=== PATIENT | male | born 1965 | race Caucasian/White ===

== ENCOUNTER 2020-07-08 14:13 | Inpatient (IN) | payer BC, OTHER ==
[~2020-07-08 14:13] MED LIST: AMBIEN 5 MG TABL5 M1; AVAPRO 150 MG150 M1; BUSPIRONE HCL15 MG PO; EFFEXOR XR150 MG PO; LEXAPRO 10 MG T10 M1; LOVASTATIN 20 M20 MG; PERCOCET 5-3251 EACH PO; XANAX 0.5 MG0.5 MG PO; ZETIA10 MG PO; ZOFRAN ODT4 MG PO; ZOLOFT50 MG; melatonin
--- NOTE | 2020-07-09 07:23 | NUR ---
Transferred to [facility] unit on 07/09/20 @ 0400 from [facility] Emergency Department, admitted to Bed 521 A. Comes to us from [place] ED for an episode from drinking Vodka after 6 years sober. Brought to the ED by the police after discharging a firearm in the basement of his home. At that time he expressed Suicidal Ideation, he now reports that he is ashamed and embarrased and does not feel motivated to suicide. Also denies HI. Reports father completed suicide in when patient was 14 years old. Quiet, calm and relaxed on admission. Admitting DX F32.9 Unspecified Depression. Able to ambulate with out assistance Continent of B&B, also reports BM x 2 on 07/08/20. Regular diet, however does not care for spinach or cottage cheese. Reports Headache of 2/10 at this time. Denies other pain. HRRR, S1S2 noted, Lungs CTA, denies smoking. Negative Covid 19 on 07/09/20
[2020-07-09 09:45] VITALS: BP 136/95
[2020-07-09 09:57] VITALS: BP 136/95
--- NOTE | 2020-07-09 11:20 | NUR ---
Nutrition: pt admitted with MDD to [facility] unit. Admit following drinking vodka after 6 years sobriety and discharging firearm in basement. PMH: morbid obesity, ETOH, GERD, gastric bypass (2019), HTN. No labs to assess. Current weight 168# and pt with 120# weight loss in the past 18 months post gastric bypass. Reports good appetite although eats small portions. Was able to order lunch. Voices no questions for RD. Very pleasant. Would recommend ordering a MVI with Fe+, Calcium/vitamin D, B12 supplementation. Place as low risk.
--- NOTE | 2020-07-09 12:27 | NUR ---
SHAUN contacted Lynn pt's to schedule a family meeting. No answer. SHAUN left a msg. SW team will continue to follow pt during his stay on this unit.
--- NOTE | 2020-07-09 19:35 | NUR ---
0700 ASSUMED CARE OF PATIENT. PATIENT UP AMB WITH STEADY GAIT. PATIENT PACING IN HALLS. CALM AND COOPERATIVE, LS CLEAR, BS ACTIVE, NO C/O PAIN. DENIES SI/HI. PATIENT GOAL FOR THE DAY IS TO GET SOME SLEEP TONIGHT. NO CONCERNS VOICED. MEDICATION TAKEN WHOLE WITHOUT DIFFICULTY.
[2020-07-09 19:40] VITALS: BP 131/93
--- NOTE | 2020-07-09 23:12 | H ---
[facility] [address] [place] [address] HISTORY AND PHYSICAL Name: HAYDE DURANT Room #: 521A-A ADM IN M.R.#: [id number] Admission: 07/09/20 Attend Phys: Edenilson Richmond DO Discharge: Date of : 63 Report #: [id number] THIS REPORT FOR: cc: PHILL CORONEL MD, CHADWICK MD Kerstein, Andrew H. DO ~ DATE OF SERVICE: 07/09/2020 INPATIENT PSYCHIATRIC EVALUATION ATTENDING PSYCHIATRIST: Edenilson Richmond DO IT SECURITY ADMINISTRATOR: John Monge MD REASON FOR ADMISSION: Referred from [facility] Emergency Room, brought there by law enforcement after discharging a firearm in his home while intoxicated while on his home with his son. SOURCES OF INFORMATION: Interview with the patient, medical records from [place], collateral as well that was given by law enforcement. CHIEF COMPLAINT: "I did not mean to do it." HISTORY OF PRESENT ILLNESS: This is a 54-year-old male with a history of alcoholism, relapsed this past Tuesday when he was off work. His works in [employer]- she was at work when incident happened. He states he opened a 7up, felt like drinking alcohol, went to a nearby store, got wine size bottle of liquor, and became intoxicated. He had called his son when he was intoxicated and feeling down. He had actually 2 handguns and a shotgun, but the handgun he had out for personal protection, he tucked it and states he accidentally discharged the firearm and son heard the gunshot and 911, etc. was called. He was brought into the ER under police custody. Affidavits were done, the patient was willing to come to the [facility] Unit voluntarily. The patient does admit to an incident with some similarity of this in 2013 when there was a firearm, which he did not discharge, but his was concerned he was suicidal and he states he spent 4 days at [facility] for this. 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 He previously worked at a [employer], which was barred out and he was offered demotion. 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 PSYCHIATRIC REVIEW OF SYSTEMS: Denying depression, anxiety, auditory, visual, [address] [address] HISTORY AND PHYSICAL Name: HAYDE DURANT Room #: 521A-A ADM IN M.R.#: [id number] Admission: 07/09/20 Attend Phys: Edenilson Richmond DO Discharge: Date of : 63 Report #: [id number] or tactile hallucinations, suicidal ideation, etc. On 10-point review of systems starting from the head, eyes, ears, nose, throat denied. CARDIAC: Denied. RESPIRATORY: Denied. ABDOMEN: Denied. GENITOURINARY: Denied. MUSCULOSKELETAL: Denied. ENDOCRINE: Denied, otherwise negative on brief 10-point review of systems. NEUROLOGIC: Denied tremor, rigidity, etc. as well. DEVELOPMENTAL HISTORY: Born in [place], raised in [place], [place]. He completed high school, 2 years of college at [employer] in [place]. FAMILY MENTAL HEALTH HISTORY: His dad committed suicide in 1978 when he was 13 years old, close to 14. He states he basically functioned as an emancipated minor from age 15 on. The psychotherapist is Chelita at [facility], his primary care physician is Phill Coronel. MARITAL HISTORY: for 30 years. Two stepsons ages 37 and 38, 3 grandkids and [address]. FAMILY HISTORY: Mother 5 years ago, she had alcoholism and cirrhosis of the liver. LABORATORY DATA: From the ER at [facility], H and H 15.0 and 46.3, white count 7.4, platelet count 207. Chemistries: Sodium 148, potassium 3.7, chloride 109, bicarbonate 27, anion gap 12, BUN 14, creatinine 0.9, glucose 100, calcium 8.9, total bilirubin 0.3, AST 20, ALT 48, alkaline phosphatase 117. CK 91. Troponin less than 0.4, total protein 7.9, albumin 4.2, lipase 273. Urinalysis showed trace blood, otherwise negative. Toxicology, 2.8 salicylate, less than 2 acetaminophen. Urine drug screen was negative. Serum alcohol was 230. COVID 19 PCR serology was negative. HOME PSYCHIATRIC MEDICATIONS: Effexor 225 mg daily, buspirone 15 mg 3 times a day, I restarted today, otherwise, he is just on house PRNs. ABUSE HISTORY: Denied physical, sexual or emotional or other substances besides alcohol. Denies smoking including smokeless tobacco. Denies recreational drug use. FAMILY HISTORY: Remote history of marijuana use as a teenager, but none in the last 30 years. [facility] [address] [place] [address] HISTORY AND PHYSICAL Name: HAYDE DURANT Room #: 521A-A ADM IN [facility]#: [id number] Admission: 07/09/20 Attend Phys: Edenilson Richmond, DO Discharge: Date of : 63 Report #: [id number] PHYSICAL EXAMINATION: VITAL SIGNS: Temperature 36.7 today, pulse 84, respirations 18, BP 136/95, O2 sat 97%. GENERAL: He is a bit unkempt, wearing hospital gown. MUSCULOSKELETAL: Normal gait and station. MENTAL STATUS EXAMINATION: This is a well-developed male, appearing stated age. Attention fair. Concentration fair. Speech is normal in rate, rhythm and tone. Thought process is linear and goal directed. Thought content focused on ameliorating and situation. No psychomotor agitation or psychomotor retardation. Denied suicidal ideations or plan. Denied hopelessness, helplessness. Denied auditory, visual, or tactile hallucinations. Memory not formally tested. Insight fair to limited. Judgment obviously limited few days ago but is good now. Fund of knowledge is above average. FORMULATION: A 54-year-old male following on scenarios, alcohol intoxication and discharge of firearm with concern for self-harm behavior. DIAGNOSES: Basically diagnosis at this time is alcohol abuse, alcohol intoxication, resolved. Adjustment disorder with disturbance of emotions and conduct, resolved, unspecified depression by history. PLAN: Given the ongoing use 225mg of Effexor and buspirone 15mg restarted at home doses and frequencies, I do not think the patient needs a [facility] alcohol withdrawal protocol at this time. automobile body worker will make contact with his . He claims the firearms have been removed and that is going to be essential to confirm. We will also need to make sure he has timely outpatient counseling appointment. We will repeat BMP tomorrow to see if his sodium has normalized. Time spent on this case today is at least 60 minutes, greater than 50% of time was review of records, coordination of care. <ELECTRONICALLY SIGNED> By: Edenilson Richmond DO 07/09/20 2312 [id number] Edenilson Richmond, /nt
--- NOTE | 2020-07-10 02:10 | NUR ---
PACING IN HALLWAYS UPON INITAL ASSESSMENT THIS PM. PLEASANT AND COOPERATIVE WITH NURSING STAFF DURING 1;1/PM ASSESSMENT. DENIES C/O PAIN/DISCOMFORT. DENIES SI/SH/HI. FULL RANGE AFFECT. DOES REPORT ANXIETY RATED A 4-5 ON 1-10 SCALE RE; BEING ABLE TO SLEEP AND STATES FEELS "OVERWHELMED" BY MILLEU. DOES RESPOND TO SUPPORT AND REASSURANCE OFFERED BY NURSING STAFF. STATES THAT HE TAKES TRAZADONE AT HOME FOR SLEEP. DR LANDA CONTACTED AND ORDERS RECEIVED. TRAZADONE 50MG GIVEN PO PRN AT APPROX 2145-TO BED AT 2200 AND APPEARS TO BE RESTING QUIETLY.
[2020-07-10 05:51] LABS: CALCIUM 9.7 mg/dL (8.5-10.1); CREATININE 0.9 mg/dL (0.7-1.3)
[2020-07-10 09:21] VITALS: BP 106/70
--- NOTE | 2020-07-10 11:27 | NUR ---
0700 ASSUMED CARE OF PATIENT,PATIENT UP AMB IN [place]. ATE 100% OF BREAKFAST. PATIENT CALM AND COOPERATIVE. VOICED BEING NERVIOUS FOR FAMILY MEETING THIS AM. MEDICATIONS TAKEN WHOLE WITHOUT DIFFICULTY. PATIENT DENIES SI/HI. LS CLEAR, BS ACTIVE. DENIES ANXIETY AND DEPRESSION. PATIENT ORIGINAL GOAL FOR THE DAY WAS TO HAVE A GOOD FAMILY MEETING AND NOW STATES GOAL IS TO BE POSITIVE AND MOVE FORWARD. DENIES CONCERNS. VS BP-106/70 P- 73 R- 17 T- 97.0 PAYAM- 100%. PATIENT STATES BEING EXCITED TO START OUT PATIENT THERAPY AND MOVE FORWARD. PATIENT STATES DC PANNING IS FOR 07/11/20.
--- NOTE | 2020-07-10 13:58 | NUR ---
SHAUN attended a familly meeting with pt, Dr. Richmond, and pt's Lynn (on the phone). It was discussed that pt will d/c from unit on 07/11 @1300. SW, pt and Lynn created a safety plan as follows for pt when he is in crisis: Below is a Safety Plan with actions for me to do when I am stressed an overwhelmed. What is something you enjoy doing that will help me relax when I am stressed? - I can play with my dog Honorio. What is something I can do if I continue to feel stressed when #1 doesn t work for me? - I can go for a walk or take Honorio for a walk. Who can I call if I need to talk with someone for additional support? - I can call my friend Tucker or talk with my Lynn. What can I do next if talking to a friend does not reduce my stress? - I can call my therapist Homa or utilize that area Crisis Hotline of 620-749-2540 which is available to me 15/11. If the above does not work and I am beginning to feel like I am a danger to myself or others, what can I do? - I can go to the nearest Emergency Department and ask to be evaluated for psych needs. If I utilize this option, I will call my therapist Homa and provide to her an update. SW also was told that pt had an initial appoinment with a new therapist tomorrow morning, but canceled as she did not know when he was going to discharge. Therapist name is Homa with [facility]. SHAUN contacted [facility] at [phone] to scheduled a new appt. SHAUN was told that pt's new appt is August 27 @0830. Rep said they typically schedule appointments 2 months out, but she will call SW if she is able to get a sooner appt. Fax number for Homa is [phone]. SHAUN contacted pt PCP's office to schedule an appt; pt's doctor is Dr. Phill Pisano MD at [phone]. SHAUN was routed to another person who the rep said could make pt an appt. SHAUN left a ms. Aliya's fax is [phone]. SW team will continue to follow pt during his stay on this unit.
[2020-07-10 19:47] VITALS: BP 113/73
[2020-07-11 03:24] VITALS: BP 113/73
--- NOTE | 2020-07-11 03:30 | NUR ---
Assumed care on 07/10/20 @ 1900, up ad rich, ambulating throughout the mileu independently. On the phone during evening hours, seated in the hallway. Cooperative with assessment and compliant with medication. Denies Pain, denies SI/HI/AH/VH. Reports will be doing out patient counseling upon discharge. 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 In bed with bed in low position, will continue to monitor for safety and comfort as per [facility] protocol.
[2020-07-11 07:50] VITALS: BP 123/70
[2020-07-11 09:31] VITALS: BP 123/70
--- NOTE | 2020-07-11 11:46 | NUR ---
Rupali with [facility] contacted SHAUN and scheduled a PCP appt with Dr. Phill Palmer on 07/17/2020 @10am. Phill will oversee pt's psych needs. SW team will continue to follow pt during his stay on this unit.
--- NOTE | 2020-07-11 11:56 | NUR ---
SHAUN D/C NOTE SHAUN created a SW handout with pt's PCP and therapy appt on it. SHAUN gave pt a copy of the handout and a copy of his safety plan that was discussed with his . SHAUN also printed out a directory with psych providers, and also addiction services that are covered by pt's insurance. SHAUN explained to pt that she is awaiting a call from [facility], however, if pt does not hear from that provider or does not want to choose that provider, that he can review the director for one he would like to choose. Pt said ok. SHAUN gave pt's nurse a copy of the documents to explained to pt to put in his take home packet.
[2020-07-11 11:59] VITALS: BP 123/70
[2020-07-11 12:18] VITALS: BP 123/70
[2020-07-11] MEDS ORDERED: TRAZODONE HCL50 MG PO (12:52)
[2020-07-11] MEDS ORDERED: EFFEXOR XR75 MG PO (12:52)
[2020-07-11 13:03] VITALS: BP 123/70
--- NOTE | 2020-07-11 13:43 | NUR ---
Alert and orientated X4. Calm, cooperative and compliant. Denies SI/HI. States he no longer has access to a gun. States he wants to get discharged so he can proceed with outpatient therapy. Breath sounds clear. Reg HR auscultated. Color pink with brisk capillary refill and palpable peripheral pulses. No edema. Independent with voiding. Active bowel sounds over soft, rounded abdomen. States he had gastric bypass surgery about 2 yrs ago. Ambulates with regular, steady gait. Discharged at 1317 with RECORDS MANAGEMENT MANAGER to meet son at entrance
--- NOTE | 2020-07-12 20:38 | D ---
[facility] [place] [address] DISCHARGE SUMMARY Name: HAYDE DURANT Room #: 521A-A [facility] IN M.R.#: [id number] Admission: 07/09/20 Attend Phys: Edenilson Richmond DO Discharge: 07/11/20 Date of : 63 Report #: [id number] THIS REPORT FOR: cc: PHILL CORONEL MD, CHADWICK MD Kerstein, Andrew H. DO ~ DATE OF SERVICE: 07/11/2020 PSYCHIATRIC DISCHARGE SUMMARY ATTENDING PSYCHIATRIST: Edenilson Richmond DO. MEDICAL CONSULTANTS: Demetria Fernando MD and John Monge MD. DISCHARGE MEDICATIONS: Trazodone 50 mg p.o. at bedtime p.r.n. for sleep, venlafaxine XR 225 mg p.o. daily for depression, buspirone 15 mg 3 times a day for anxiety. These were all prescribed by Dr. Phill Coronel. The patient did not request any prescriptions or discharge notes. DISCHARGE DIAGNOSES: Alcohol intoxication, resolved; alcohol use disorder, mild; unspecified depression. The patient will be discharging to his home. The patient will have a follow up appointment in the next few weeks with Dr. Phill Coronel. He is a therapist at [facility], he has an appointment with on 08/27/2020. The patient's confirmed that the firearms have been removed and were secured by his son. LABORATORY DATA: Obtained in the [facility] ED and grossly were normal except for sodium slightly elevated at 147. CMP was repeated. This normalized. REASON FOR ADMISSION: The patient was brought to [facility] ED with affidavits by law enforcement. Apparently, he discharged a firearm while intoxicated and he was on the phone with his son. There are statements of suicidal reference when he was drunk and on the phone with his son. HOSPITAL COURSE: The patient was transferred to [place], passed his COVID test, admitted to the Geriatric Psychiatry Unit. This was believed to be an alcohol binge. The patient did not have any alcohol withdrawal issues. I had phone conference with his . They are and live together. The patient voiced remorse for his actions. The patient slept well, he ate well this admission, participated in therapeutic activities on the milieu. PHYSICAL EXAMINATION: VITAL SIGNS: On the day of discharge, temperature 35.9, pulse 69, respirations 18, BP 123/70. MUSCULOSKELETAL: Normal gait and station. [address] [address] DISCHARGE SUMMARY Name: HAYDE DURANT Room #: 521A-A [facility] IN ..#: [id number] Admission: 07/09/20 Attend Phys: Edenilson Richmond DO Discharge: 07/11/20 Date of : 63 Report #: [id number] MENTAL STATUS EXAMINATION: This is a well-developed, fairly nourished male, appearing stated age. Attention intact. Concentration intact. Speech is normal in rate, volume and tone. Thought process is linear and goal directed. Thought content focused on discharge. No psychomotor agitation. No psychomotor retardation. Denied SI or HI. Denied auditory, visual, or tactile hallucinations. Denied hopelessness or helplessness. Memory not formally tested. Insight: Fair. Judgment: Fair. Fund of knowledge, at least average. PROGNOSIS: For this patient is guarded and will depend on abstinence of alcohol, compliance with counseling, compliance with physician, medication and visits. <ELECTRONICALLY SIGNED> By: Edenilson Richmond DO 07/12/208 1408 1436 Edenilson Richmond DO /nt
== END 2020-07-11 13:17 | disposition home or self-care (01) | DRG 881 ==
LOC: SBH
PROVIDERS: ADMIT Psychiatry & Neurology Psychiatry; ATTEND Psychiatry & Neurology Psychiatry
DX: F32.9 Major depressive disorder, single episode, unspecified (principal); F10.229 Alcohol dependence with intoxication, unspecified; F41.1 Generalized anxiety disorder; G47.00 Insomnia, unspecified; E78.5 Hyperlipidemia, unspecified; K21.9 Gastro-esophageal reflux disease without esophagitis; I10 Essential (primary) hypertension; Y90.9 Presence of alcohol in blood, level not specified; Z98.84 Bariatric surgery status
CPT/HCPCS: 10880

== ENCOUNTER 2020-07-08 14:17 | Emergency (ER) | payer BC, OTHER ==
[~2020-07-08] VITALS: Ht 182.9 cm; Wt 76.2 kg
[2020-07-09 03:50] VITALS: BP 144/89
== END 2020-07-09 03:52 | disposition still patient (30) ==
LOC: ER 14:17
DX: R45.851 Suicidal ideations (principal); F32.9 Major depressive disorder, single episode, unspecified; I10 Essential (primary) hypertension; E78.5 Hyperlipidemia, unspecified; F41.9 Anxiety disorder, unspecified; Z90.89 Acquired absence of other organs; Z79.899 Other long term (current) drug therapy; Z20.822 Contact with and (suspected) exposure to COVID-19